=== PATIENT | male | born 1965 | race Caucasian/White ===

== ENCOUNTER 2017-03-09 07:21 | Day surgery (SDC) | payer BC ==
[2017-03-09] MEDS ORDERED: PROPOFOL 20 ML IV ONE (09:56)
[2017-03-09] MEDS ORDERED: PROPOFOL 40 ML IV ONE ×2 (10:24→10:59)
--- NOTE | 2017-03-16 14:20 | SURGPATH ---
[facility] [address] [place] [id number] Patient Name: SHAGGY SAGE MR#: [id number] : 1965 Gender: M Specimen #: [id number] Collected: 03/09/2017 Received: 03/10/2017 Reported: 03/13/2017 Submitting Phys: HONEY GOMEZ Copy To Phys: [facility] ABBIE HITCHCOCK Clinical History / Pre-Operative Diagnosis: COLONOSCOPY SCREENING Specimen Source / Surgical Procedure Performed: #1-TRANSVERSE POLYP AT 55 CM; #2-TRANSVERSE POLYP AT 60 CM; #3-CECAL POLYP AT 130 CM; #4-TRANSVERSE POLYP AT 90 CM Interpretation: 1. COLON, TRANSVERSE, POLYP AT 55 CM, POLYPECTOMY: - TUBULAR ADENOMA 2. COLON, TRANSVERSE, POLYP AT 60 CM, POLYPECTOMY: - THREE FRAGMENTS OF TUBULAR ADENOMA 3. CECUM, POLYP AT 130 CM, POLYPECTOMY: - THREE FRAGMENTS OF TUBULAR ADENOMA 4. COLON, TRANSVERSE, POLYP AT 90 CM, POLYPECTOMY: - SEVEN FRAGMENTS OF TUBULAR ADENOMA Electronically Signed Out Mckayla Haider M.D. Gross Description: #1 The specimen is received in a formalin filled container labeled with the patient's name and "transverse polyp at 55 cm". A single ordoñez biopsy is 0.3 cm. Totally embedded in cassette #1. #2 The specimen is received in a formalin filled container labeled with the patient's name and "transverse polyp at 60 cm". Two ordoñez biopsies are 0.3 x 0.2 x 0.2 cm and 0.6 x 0.5 x 0.4 cm. The larger polyp is bisected. Totally embedded in cassette #2. #3 The specimen is received in a formalin filled container labeled with the patient's name and "cecum polyp at 130 cm". Three tracey-ordoñez biopsies are 0.3, 0.3 and 0.4 cm. Totally embedded in cassette #3. #4 The specimen is received in a formalin filled container labeled with the patient's name and "transverse polyp at 90 cm". Six ordoñez biopsies are 0.3-0.5 cm. Totally embedded in cassette #4. Que Cobos, PWanderAWander Microscopic Description: Part 1: A single fragment of colonic mucosa is seen with crowded glands lined by hyperchromatic nuclei. No high-grade dysplasia or carcinoma is seen. Dr. Stephanie Smiley has reviewed this part and concurs with the interpretation. Part 2: Three fragments of colonic mucosa are seen, which show crowded glands lined by hyperchromatic crowded epithelial cells. No high-grade dysplasia or carcinoma is seen. Part 3: Three fragments of colonic mucosa are seen, which show crowded glands lined by hyperchromatic crowded epithelial cells. No high-grade dysplasia or carcinoma is seen. Part 4: Seven fragments of colonic mucosa are seen, which show crowded glands lined by hyperchromatic crowded epithelial cells. No high-grade dysplasia or carcinoma is seen. 1: 49021 2: 92242 3: 55898 4: 51324 D12.3 D12.0
== END 2017-03-09 12:00 | disposition home or self-care (01) ==
LOC: SDC 07:21
PROVIDERS: ATTEND Family Medicine
PROC: 0DBH8ZX Excision of Cecum, Via Natural or Artificial Opening Endoscopic, Diagnostic (ICD-10-PCS; principal; 2017-03-09)
PROC: 0DBL8ZX Excision of Transverse Colon, Via Natural or Artificial Opening Endoscopic, Diagnostic (ICD-10-PCS; principal; 2017-03-09)
DX: Z12.11 Encounter for screening for malignant neoplasm of colon (principal); D12.3 Benign neoplasm of transverse colon; D12.0 Benign neoplasm of cecum; K57.30 Diverticulosis of large intestine without perforation or abscess without bleeding